=== PATIENT | female | born 1980 | race Caucasian/White ===

== ENCOUNTER 2023-09-22 15:18 | Emergency (ER) | payer OTHER, SELFPAY ==
[2023-09-22 15:36] VITALS: BP 131/76; PULSE 67; RESP 16; TEMP 37.1; O2SAT 100; BMI 25.7
--- NOTE | 2023-09-22 15:58 | XR_ITS ---
Patient: FATIMAH FISCHER BOOKS Facility:?[facility] Patient ID:?[id number] Site Patient ID:?[id number]. Site :?[id number] Study:?XRay-Extremity Left Foot 3v-09/22/2023 4:20:35 PM Ordering Physician:?India Carrillo Final Report: INDICATION: Pain with standing. Previous injury. TECHNIQUE: Left foot three views. COMPARISON: None. FINDINGS: No acute fracture or dislocation. No additional osseous abnormality. Soft tissues as imaged are unremarkable. IMPRESSION: No acute osseous abnormality. Dictated by Hermes Chisholm MD @ 09/22/2023 4:37:49 PM Signed by:?Hermes Chisholm MD @09/22/2023 4:37:49 PM (Electronic Signature)
--- NOTE | 2023-09-22 18:43 | ED_ITS ---
HPI - Extremity Injury (Lower) General Time Seen by Provider: 18:43 Date Seen: 09/22/23 Chief Complaint: Extremity Pain/Injury, Lower Stated Complaint: L foot injury Time Seen by Provider: 09/22/23 18:42 Source: patient and RN notes reviewed Mode of arrival: ambulatory Limitations: no limitations History of Present Illness HPI Narrative: Mary is a 43-year-old female with history of injury to her left great toe in August of 2022 who comes to the [place] [facility] with concerns about continued difficulty flexing of her toe. 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 States to nursing that she was wearing socks but no shoes and heard a sound in the patient's room and when she ran in stated that the leg pump machine ?blew up?. States that she was running quite fast and ended up hitting the end of her toe and fat pad, not the nail, on the end of the machine causing her a lot of pain. She notes that since that time she has had problems with bending of her toes along with discomfort. Initially it was the great toe that caused her discomfort but now she also notes discomfort in her 2nd toe. She notes that she had been seen at [facility] and had x-rays but when they ended up showing her x-rays of 2 male feet. When she pointed this out, She states they refused to show her her x-rays and discharged her. Later in the conversation she also describes similar incidence at [place]. Patient notes that initially she did soaking at the end the day and sometimes that was helpful. She has had no redness or drainage from this area until late April 2023 almost 8 months after the injury. Since that time she has had intermittent redness and drainage. She notes that she was using some orthopedic inserts and padding but sometimes this made it worse. She notes no fever or chills. She notes that as her nail grew out this was causing her pain and she clipped at short. She is concerned that she has an underlying ligament or tendon injury undiagnosed from previous hospital visits that is causing the redness today. Again, we ascertained that she hit the fat pad of the toe and not the nail. We ascertained that the redness did not start until the end of April 2023. She has continued to soak this area. Mary is clearly frustrated in the fact that she is not improving. She had x- rays prior to me seeing her and does wish to have a copy of them. Related Data Home Medications Medication Instructions Recorded Confirmed No Known Home Medications 09/22/23 09/22/23 Allergies Allergy/AdvReac Type Severity Reaction Status Date / Time No Known Drug Allergies Allergy Verified 09/22/23 15:58 Review of Systems Narrative: Negative for fever or chills. No past history of ingrown toenail no past history of fracture Const: Denies: fever PFSH PFSH Medical History History of psychosis ?Z86.59 - Personal history of other mental and behavioral disorders (ICD-10) History of renal stone (2015) ?Z87.442 - Personal history of urinary calculi (ICD-10) Surgical History History of section (2003) ?Z98.891 - History of uterine scar from previous surgery (ICD-10) Family History Father High blood pressure High cholesterol Diabetes Heart disease Kidney stones Mother High blood pressure High cholesterol Daughter Seizure disorder Sister Kidney stones Brother Kidney stones Social History Smoking Status: Never smoker How often do you have a drink containing alcohol: never AUDIT-C Alcohol total score: 0 Non-prescribed substance use: denies use Exam Narrative: Exam Narrative: Patient is alert and oriented. Very detailed in history of original injury from August of 2022. Clearly frustrated and disagreeing with my assessment today. No respiratory distress. Examination of the left great toe shows erythema from the mid aspect of the toe to distal aspect.. Most of the erythema and swelling I am seeing is around the lateral nail. There is some drainage from this area as well. Examination shows obvious tenderness here but patient also has tenderness over the great MTP and to a lesser extent over the 2nd MTP I do see her with some flexion and extension but it does appear to be limited and does increase her discomfort. No pain with palpation on the foot. No obvious deformity. Nail itself is cut very short so that there is no extra nail extending from the bed. Const: Vital Signs, click to edit/add: Vital Signs - 24 hr 09/22/23 15:36 Temperature 98.8 F Pulse Rate [Pulse Oximeter] 67 Respiratory Rate 16 Blood Pressure [Ri ght Upper Arm] 131/76 Pulse Oximetry 100 Oxygen Delivery Me thod Room Air Documenting provider has reviewed patient's vital signs: yes Course Course ED Course: I do let Mary know that I do not see any obvious fractures on her x-ray nor did Radiology. I do provide a copy of the x-rays and she is very concerned about the additional calcifications around the MTP which at this time appear to be sesamoid bones. I do admit to her that x-ray cannot see ligaments or tendons and that she may need MRI and specialty consultation. At this time I do tried to explain to the patient that I think she has 2 unrelated problems. First, she does have discomfort with flexion and extension at the MTP. I do think she needs orthopedic evaluation and possibly MRI. Patient would like an MRI this evening and I tell her we do not do that for non emergent problems in addition to the fact that I do not have MRI availability at this time of the evening. She is very upset stating that she heard someone leaving talking about the MRI they had and that any Dr. Would want to address this problem. Again I explained to her that the redness that she is seeing is likely related to an ingrown nail and not the initial injury from August of 2022. I state this because she had no redness or nail problems for 8 months after the initial injury. Examination clearly shows that the nail is ingrown. She states that we will have to agree to disagree. I do tell her I am concerned about her nail and talk about the possibility of some nail removal, possible use of antibiotics and she is declining this. I do suggest seeing orthopedics or podiatry. She is let wanting to see Orthopedics at this time and would like that phone number. Patient is upset that I will not do an MRI and I do have to explain to her multiple times that that is not something I would do emergently and not something that I would be able to do after hours. I highly encouraged her to see Orthopedics. I do tried to steer the conversation back to the obviously ingrown toenail with with drainage. I do offer antibiotics which she declines. She declines a wooden shoe. She declines crutches. She declines nail removal or any other a treatment at this time. She states she will just see Orthopedics. Vital Signs Vital signs: Initial Vital Signs Temperature 98.8 F 09/22/23 15:36 Temperature Source Temporal Artery Scan 09/22/23 15:36 Pulse Rate 67 09/22/23 15:36 Respiratory Rate 16 09/22/23 15:36 Blood Pressure 131/76 09/22/23 15:36 Blood Pressure Mean 94 09/22/23 15:36 Blood Pressure Position Sitting 09/22/23 15:36 Pulse Oximetry 100 09/22/23 15:36 Oxygen Delivery Method Room Air 09/22/23 15:36 Vital Signs Temperature 98.8 F 09/22/23 15:36 Pulse Rate 67 09/22/23 15:36 Respiratory Rate 16 09/22/23 15:36 Blood Pressure 131/76 09/22/23 15:36 Pulse Oximetry 100 09/22/23 15:36 Oxygen Delivery Method Room Air 09/22/23 15:36 Temperature 98.8 F 09/22/23 15:36 Pulse Rate 67 09/22/23 15:36 Respiratory Rate 16 09/22/23 15:36 Blood Pressure 131/76 09/22/23 15:36 Pulse Oximetry 100 09/22/23 15:36 Oxygen Delivery Method Room Air 09/22/23 15:36 MDM - Extremity Injury (Lower) MDM Narrative Medical decision making narrative: 1. Ingrown toenail with drainage-patient has declined any treatment today including antibiotics, nail removal, crutches, wooden shoe. I did explain many times that I do not think this is related to her initial injury in August of 2022 because she had no such symptoms for 8 months after the injury. She also ascertained that the point of contact of her toe was actually more of the fat pad and tip and not the nail itself. I have suggested to her that she continue to soak her nail and gently pull away the soft tissue of the lateral toe in the hopes that some of that can be drain. In addition I told her not to cut her nail so short. And demonstrated to her that once her nail grows out a bit she can actually make a small v-shaped inverted cut and allow the nail to start growing laterally. Again declines any treatment for this today. 2. Foot pain-MTP-I am wondering if patient sustained ligamental injury. She is very upset that she will not get MRI noting that any doctor should want to solve this problem. This is not an emergent problem as she has had ongoing discomfort for over a year at this point. Highly encourage in do offer phone number for Orthopedics stating that she can also see the PAs. Declined any interventions at this time. 3. Disposition-home at this time. Nursing staff does inform me when they took discharge instructions into her that a physician that had worked at the clinic and no longer does was listed as her primary and she became very angry insisting that we take this off the discharge form. She was asked to her primary was in stated was local. I do note significant rumination today regarding the initial injury from August. I cannot convince her that the ingrown toenail is not subsequent to an undiagnosed ligamental or tendon injury. She was very upset at previous encounters with hospitals. Again, she tells me that we will have to agree to disagree. Total time spent discussing this exceeded 35 minutes. However, twice I was interrupted to take a phone call. However I was only gone for a total of 6-7 minutes. Imaging Data Left foot x-ray: Attestation: I have reviewed the pertinent imaging results. My impression: I do not note any acute findings. Radiologist's impression: No acute fracture or dislocation. No additional osseous abnormality. Soft tissues as imaged are unremarkable. IMPRESSION: No acute osseous abnormality. Discharge Plan Discharge Clinical Impression: Ingrowing toenail, Foot pain Patient Disposition: Home, Self-Care Condition: Unchanged Additional Instructions: for the ingrown toenail: Continue to soak as you described. Gently pull away some of the skin from the nail. When the nail grows out you can cut a v-shaped in it in the hopes that the nail will stop growing into the skin and toe. You may need to have part of the nail removed in order to resolve the drainage and redness. Return to the emergency room as needed. For the foot pain and inability to bend the foot: I would like to refer you to a specialist for further evaluation and possible MRI. [facility] in [place] can be reached at [phone]. Other alternatives include [facility] or [facility]. Try to limit as much activity as possible. If you change your mind in would like a wooden shoe or crutches please let us know. Prescriptions: No Action No Known Home Medications Follow Up/Referrals: Provider,Not a Local [Primary Care Provider] - Stand Alone Forms: Actual Experience Info Instructions
== END 2023-09-22 19:55 | disposition home or self-care (01) ==
PROVIDERS: Emergency Provider Family Medicine
DX: M79.672 Pain in left foot (principal); L60.0 Ingrowing nail
CPT/HCPCS: 73630; 99283